=== PATIENT | male | born 1975 | race Two or more races ===

== ENCOUNTER 2023-07-10 12:00 | Emergency (ER) | payer MEDICAID ==
[~2023-07-10] VITALS: Ht 170.2 cm; Wt 82.0 kg
[~2023-07-10 12:00] MED LIST: CEPH-585 PO
[2023-07-10 12:04] VITALS: TEMP 98.5
[2023-07-10] MEDS ORDERED: PENICILLIN G BENZATHINE 2,400,000 UNIT/4 ML SYRINGE IM STA (16:23)
[2023-07-10] MEDS ORDERED: CefTRIAXone 1000mg IM Kit (w/lidocaine diluent) IM STA (16:23)
[2023-07-10] MEDS ORDERED: azithromycin 250mg tablet PO ONE (16:25)
[2023-07-10 17:49] LABS: HIV ANTIBODY 1&2 RAPID NON-REACTIVE (Neg)
[2023-07-10 18:01] LABS: SYPHILIS SCREENING TEST POC POSITIVE (Negative)
[2023-07-10 18:50] VITALS: BP 125/72; PULSE 78; RESP 18; O2SAT 100
[2023-07-13 17:19] LABS: CHLAMYDIA TRACHOMATIS, NAA Negative (Negative)
== END 2023-07-10 19:35 | disposition home or self-care (01) ==
LOC: ER 12:00
DX: A51.0 Primary genital syphilis (principal)
CPT/HCPCS: 36415; 86592; 86703; 87491; 87591; 96372; 99284; J0561; J0696

== ENCOUNTER 2024-02-27 20:49 | Emergency (ER) | payer MEDICAID ==
[~2024-02-27] VITALS: Ht 177.8 cm; Wt 81.5 kg
[2024-02-27 20:50] VITALS: BP 134/82; PULSE 95; RESP 16; TEMP 98.5; O2SAT 100
[2024-02-27] MEDS ORDERED: CLIN300C98 PO (23:03)
[2024-02-27] MEDS: CefTRIAXone 1000mg IM Kit (w/lidocaine diluent) IM ONE (23:20)
[2024-02-27] MEDS: TETanus/Pertussis (Acell)/Diphther VAC/PF (Tdap-Adult) 0.5ml syringe IMVAC ONE (23:24)
== END 2024-02-27 23:39 | disposition home or self-care (01) ==
LOC: ER 20:50
DX: L02.415 Cutaneous abscess of right lower limb (principal)
CPT/HCPCS: 90471; 90715; 96372; 99284; J0696

== ENCOUNTER 2024-06-27 19:35 | Emergency (ER) | payer MEDICAID ==
[~2024-06-27] VITALS: Ht 177.8 cm; Wt 81.8 kg
[2024-06-27 19:46] VITALS: TEMP 98.7
[2024-06-27] MEDS ORDERED: DOXY-356 PO (20:47)
[2024-06-27] MEDS: ondansetron 4mg rapidly disintigrating tab PO ONE (20:53)
[2024-06-27] MEDS: DOXYCYCLINE 100MG CAPSULE PO STA (20:53)
[2024-06-27 20:58] LABS: BILIRUBIN,URINE NEGATIVE (Neg); CLARITY,URINE CLOUDY (Clear); COLOR,URINE YELLOW (Yellow); GLUCOSE, URINE NEGATIVE (Neg); KETONES,URINE NEGATIVE (Neg); LEUKOCYTE ESTERASE ,URINE SMALL (Neg); OCCULT BLOOD,URINE SMALL (Neg); PROTEIN,URINE 30 mg/dl (Neg)
[2024-06-27 21:01] VITALS: BP 105/76; PULSE 98; RESP 16; O2SAT 95
[2024-06-27 21:02] LABS: UA COLLECTION TYPE NON-SPECIFIED
[2024-06-27 21:05] LABS: NITRITES, URINE NEGATIVE (Neg)
[2024-06-27 21:08] LABS: SQUAMOUS EPITHELIAL CELL,UR FEW /LPF (FEW)
[2024-06-27 21:09] LABS: MUCUS STRANDS FEW /LPF (Neg); WBC,URINE TNTC /HPF (0-4)
[2024-06-27 21:10] LABS: BACTERIA,URINE FEW /HPF (Neg); TRANSITIONAL EPI CELLS,URINE FEW /HPF
== END 2024-06-27 21:02 | disposition home or self-care (01) ==
LOC: ER 19:35
DX: A64 Unspecified sexually transmitted disease (principal); R30.0 Dysuria
CPT/HCPCS: 81001; 87077; 87081; 87088; 87185; 99283